=== PATIENT | female | born 1995 | race Caucasian/White ===

== ENCOUNTER 2022-02-16 11:30 | Inpatient (IN) | payer OTHER ==
[2022-02-16] MEDS ORDERED: AMPICILLIN - 2 GM in SODIUM CHLORIDE 100 ML IVPB ONE (12:00)
[2022-02-16] MEDS ORDERED: DEXTROSE 5%-LACTATED RINGERS 1,000 ML IV SCH ×2 (12:00→16:00)
[2022-02-16 12:53] LABS: BASO % 0.4 % (0-2.0); EOS % 0.3 % (0-4.5); HEMATOCRIT 40.3 % (32.4-45.2); HEMOGLOBIN 13.6 GM/dL (10.7-15.3); LYMPH % 17.4 % (8-40); MCH 29.8 pg (25.7-33.7); MCHC 33.7 g/dl (32.0-36.0); MEAN CELL VOLUME 88.6 fl (80-96); MEAN PLT VOLUME 10.3 fl (7.5-11.1); NEUT % 75.9 % (42.8-82.8); PLATELET COUNT 202 10^3/uL (134-434); RBC 4.55 M/mm3 (3.60-5.2); WHITE BLOOD COUNT 9.5 K/mm3 (4.0-10.0)
[2022-02-16 13:00] LABS: INR 0.94 (0.83-1.09); PROTHROMBIN TIME (PATIENT) 10.8 SEC (9.7-13.0)
[2022-02-16 13:02] LABS: ACTIVATED PTT 25.6 SECONDS (25.2-36.5)
[2022-02-16 13:12] LABS: CALCIUM 8.5 mg/dL (8.5-10.1)
[2022-02-16 13:13] LABS: BLOOD UREA NITROGEN 6.9 mg/dL (7-18)
[2022-02-16 13:16] LABS: CREATININE 0.6 mg/dL (0.55-1.3)
[2022-02-16 14:22] VITALS: BMI 41.9
[2022-02-16] MEDS ORDERED: AMPICILLIN SODIUM 2 GM VIAL ONE (14:25)
[2022-02-16] MEDS ORDERED: OXYTOCIN 30 UNITS in 0.9% NS 30 UNIT/500 ML INFUS.BAG IVPB ONE (15:44)
[2022-02-16] MEDS ORDERED: AMPICILLIN - 1 GM in SODIUM CHLORIDE 100 ML IVPB SCH (16:00)
[2022-02-16] MEDS ORDERED: OXYTOCIN 30 UNITS in 0.9% NS 30 UNIT/500 ML INFUS.BAG IVPB SCH (16:00)
[2022-02-16] MEDS ORDERED: AMPICILLIN SODIUM 1 GM VIAL ONE (17:41)
[2022-02-16] MEDS ORDERED: BUTORPHANOL TARTRATE 2 MG/ML VIAL ONE (19:02)
[2022-02-16] MEDS ORDERED: PROMETHAZINE HCL 25 MG/1 ML VIAL ONE (19:03)
[2022-02-16] MEDS ORDERED: PROMETHAZINE HCL 25 MG/1 ML VIAL IVPUSH ONE (19:21)
[2022-02-16] MEDS ORDERED: BUTORPHANOL TARTRATE 1 MG/ML VIAL IVPUSH ONE (19:21)
[2022-02-16] MEDS ORDERED: OXYTOCIN 20 UNITS in 0.9% NS 20 UNIT/1,000 ML INFUS.BAG IV ONE (20:11)
[2022-02-16] MEDS ORDERED: BENZOCAINE 20% 57 GM BOTTLE TP PRN (21:33)
[2022-02-16] MEDS ORDERED: WITCH HAZEL 50% (TUCKS) 40 PAD/JAR PAD TP PRN (21:33)
[2022-02-16] MEDS ORDERED: oxyCODONE HCL 5 MG TABLET PO PRN (21:33)
[2022-02-16] MEDS ORDERED: BENZOCAINE 28 GM HEMORRHOIDAL OINTMENT TP PRN (21:33)
[2022-02-16] MEDS ORDERED: BISACODYL 10 MG SUPP.RECT RC PRN (21:33)
[2022-02-16] MEDS ORDERED: METHYLERGONOVINE MALEATE 0.2 MG/1 ML AMP IM PRN (21:33)
[2022-02-16] MEDS ORDERED: ACETAMINOPHEN 325 MG TABLET (FP) PO PRN (21:33)
[2022-02-16] MEDS ORDERED: OXYTOCIN 20 UNITS in 0.9% NS 20 UNIT/1,000 ML INFUS.BAG IV SCH (21:45)
[2022-02-16 21:50] LABS: CORD BASE EXCESS -2.9 mmol/L (0-2); CORD PCO2 38.9 mmHg (30-78); CORD pH 7.37 (7.14-7.44)
[2022-02-16 21:51] LABS: CORD BASE EXCESS -3.3 mmol/L (0-2); CORD HCO3 21.2 mmHg (20-29); CORD PCO2 36.6 mmHg (30-78); CORD pH 7.38 (7.14-7.44)
[2022-02-16] MEDS: IBUPROFEN 600 MG TABLET (FP) PO PRN (23:27)
[2022-02-17 09:14] LABS: BASO % 0.3 % (0-2.0); EOS % 0.2 % (0-4.5); HEMATOCRIT 38.4 % (32.4-45.2); HEMOGLOBIN 12.5 GM/dL (10.7-15.3); LYMPH % 21.1 % (8-40); MCH 29.3 pg (25.7-33.7); MCHC 32.6 g/dl (32.0-36.0); MEAN CELL VOLUME 89.9 fl (80-96); MEAN PLT VOLUME 10.1 fl (7.5-11.1); NEUT % 74.4 % (42.8-82.8); PLATELET COUNT 193 10^3/uL (134-434); RBC 4.28 M/mm3 (3.60-5.2); RDW 13.9 % (11.6-15.6); WHITE BLOOD COUNT 13.4 K/mm3 (4.0-10.0)
[2022-02-17] MEDS: PRENATAL VITAMINS W/ FOLIC ACID TABLET (FP) PO SCH (09:43)
[2022-02-17] MEDS: FERROUS SO4 325 MG TABLET (FP) PO SCH ×2 (09:43→16:57)
[2022-02-17] MEDS: IBUPROFEN 600 MG TABLET (FP) PO PRN (17:01)
[2022-02-17] MEDS ORDERED: SENNOSIDES/DOCUSATE COMBO (SENNA PLUS) TABLET (UD) PO PRN (22:00)
[2022-02-18] MEDS: FERROUS SO4 325 MG TABLET (FP) PO SCH (08:39)
[2022-02-18] MEDS: IBUPROFEN 600 MG TABLET (FP) PO PRN (08:41)
[2022-02-18] MEDS: PRENATAL VITAMINS W/ FOLIC ACID TABLET (FP) PO SCH (10:07)
[2022-02-18 14:25] VITALS: BP 116/66; PULSE 62; TEMP 98.2
== END 2022-02-18 14:35 | disposition home or self-care (01) | DRG 560 ==
LOC: JLDR 11:30 → J3W 22:33
PROVIDERS: ADMIT Obstetrics & Gynecology; ATTEND Obstetrics & Gynecology
PROC: 10E0XZZ Delivery of Products of Conception, External Approach (ICD-10-PCS; principal; 2022-02-16)
PROC: 0UQMXZZ Repair Vulva, External Approach (ICD-10-PCS; 2022-02-16)
DX: O48.0 Post-term pregnancy (principal); O71.82 Other specified trauma to perineum and vulva; O99.824 Streptococcus B carrier state complicating childbirth; Z3A.40 40 weeks gestation of pregnancy; Z37.0 Single live birth
CPT/HCPCS: 36415; 36600; 59409; 80048; 82803; 85025; 85610; 85730; 86780; 86850; 86900; 86901; C9803-CS; U0003; U0005